=== PATIENT | male | born 1980 | race Caucasian/White ===

== ENCOUNTER 2017-03-22 19:52 | Emergency (ER) | payer OTHER ==
[~2017-03-22] VITALS: Ht 172.7 cm; Wt 70.2 kg
[~2017-03-22 19:52] MED LIST: ABLUNK; ACET-1256 PO; ALBU1AER9; LEVAAER2; OXYC-57 PO
[2017-03-22 20:00] VITALS: TEMP 36.7; Ht 172.7 cm; Wt 70.2 kg
[2017-03-22] MEDS ORDERED: VNTHFA/IN INH (20:36)
[2017-03-22] MEDS ORDERED: IBUP-1451 PO (20:36)
[2017-03-22] MEDS ORDERED: METH500T PO (20:36)
[2017-03-22 20:39] LABS: BASO % 0.6 %; BASO ABS # 0.04 K/uL (0-0.2); COMPLETE YES; EOS % 3.9 %; IG% 0.2 %; LYMPH % 43.7 %; LYMPH ABS # 2.72 K/uL (1.2-3.4); MEAN CELL VOLUME 87.7 fL (80-100); MEAN CORPUSCULAR HEMOGLOBIN 31.2 pg (25-34); MEAN CORPUSCULAR HGB CONC 35.5 g/dl (32-36); MEAN PLATELET VOLUME 9.9 fL (7.4-10.4); NEUT % 43.6 %; PLATELET COUNT 254 K/uL (130-400); RED BLOOD COUNT 5.36 M/uL (4.7-6.1); WHITE BLOOD COUNT 6.23 K/uL (4.8-10.8)
[2017-03-22 21:01] LABS: BUN/CREATININE RATIO 3.8 (10-20); CREATININE 1.2 mg/dl (0.60-1.40); POTASSIUM 3.4 mmol/L (3.5-5.1)
--- NOTE | 2017-03-22 21:06 | DIAGNOSTIC IMAGING REPORT ---
CT OF THE CERVICAL SPINE CLINICAL HISTORY: left arm tingling COMPARISON STUDY: No previous studies for comparison. CT DOSE: 282.45 mGy.cm TECHNIQUE: CT scan of the cervical spine was performed from the skull base to the thoracic inlet. Images are reviewed in the axial, sagittal, and coronal planes. IV contrast was not administered for this examination. A dose lowering technique was utilized adhering to the principles of ALARA. FINDINGS: The visualized portions of the lung apices reveal no evidence of pneumothorax. The prevertebral soft tissues are normal. No fractures or subluxations are visualized. No disc herniations are visualized on CT scanning. If there is clinical concern over the presence of cord or nerve root pathology, an MRI would be considered the test of choice. IMPRESSION: Unremarkable CT scan of the cervical spine Electronically signed by: Neto Corrales M.D. 03/22/2017 9:05 PM Dictated Date/Time: 03/22/2017 9:03 PM
--- NOTE | 2017-03-22 22:18 | DIAGNOSTIC IMAGING REPORT ---
CHEST ONE VIEW PORTABLE CLINICAL HISTORY: Atypical chest pain COMPARISON STUDY: 02/10/2016 FINDINGS: The cardiac and mediastinal contours are normal. There is no evidence of focal pulmonary consolidation. There is no evidence of failure. No pleural effusions are visualized.[ IMPRESSION: No active disease in the chest. Electronically signed by: Neto Corrales M.D. 03/22/2017 10:17 PM Dictated Date/Time: 03/22/2017 10:16 PM
--- NOTE | 2017-03-22 22:20 | DIAGNOSTIC IMAGING REPORT ---
LEFT SHOULDER 4 VIEWS ROUTINE CLINICAL HISTORY: Left shoulder pain COMPARISON: None. DISCUSSION: No fractures or dislocations are visualized. There are no visible periarticular calcifications. IMPRESSION: No fractures or dislocations identified. Electronically signed by: Neto Corrales M.D. 03/22/2017 10:19 PM Dictated Date/Time: 03/22/2017 10:18 PM
[2017-03-22 22:51] VITALS: BP 116/88; PULSE 64; O2SAT 98
--- NOTE | 2017-03-23 01:55 | EMERGENCY ROOM VISIT NOTE ---
History Report prepared by Donald: Desiree Younger Under the Supervision of: Dr. Lambert Arauz M.D. First contact with patient: 20:04 Chief Complaint: RIB PAIN Stated Complaint: TINGLING IN L ARM FOR 3 WEEKS, SHOULDER GRINDING, History of Present Illness The patient is a 36 year old male who presents to the Emergency Room with complaints of an episode of left rib pain starting 3 weeks ago. The patient states that his left arm has been numb and tingling. 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 He states he has been getting a sharp pain that starts under his armpit and shoots back under his shoulder blade. He states that it is worse with movement. The patient states that he sometimes has numbness in his arms from nerve damage in his neck. He notes that he had an accident where he fell on his right side on the side of a truck bed 6 weeks ago. He reports that he felt his rib pop and he had pain, but he feels that these symptoms have resolved. The patient denies chest pain, tingling in his legs, headache, shortness of breath, and pain while breathing. Source of History: patient Onset: 3 weeks ago Position: other (left rib) Quality: tingling, numbness, other (shooting) Timing: other (episode) Modifying Factors (Worsening): movement Associated Symptoms: No headache, No chest pain, No SOB Note: The patient denies tingling in his legs and pain when breathing. Review of Systems See HPI for pertinent positives & negatives. A total of 10 systems reviewed and were otherwise negative. Past Medical & Surgical Medical Problems: (1) Asthma Old medical records were reviewed. Nurse's notes were reviewed and I agree with. Family History No significant family history Social History Smoking Status: Current Every Day Smoker Marital Status: single Occupation Status: employed Current/Historical Medications Scheduled PRN Albuterol Hfa (Ventolin Hfa), 2 PUFFS INH Q4 PRN for SOB/Wheezing Ibuprofen Tab (Motrin), 800 MG PO DAILY PRN for Pain Methocarbamol (Robaxin), 500 MG PO 3XWK PRN for Pain Allergies Coded Allergies: Unclassified Drugs (Verified Adverse Reaction, Unknown, LOCAL ANESTHETICS - DO NOT WORK, 04/22/15) Physical Exam Vital Signs Date Time Temp Pulse Resp B/P (MAP) Pulse Ox O2 Delivery O2 Flow Rate FiO2 03/22/17 22:51 64 18 116/88 98 03/22/17 21:13 62 18 113/74 98 Room Air 03/22/17 20:00 36.7 80 16 134/88 99 Room Air Physical Exam General: Well developed well nourished in no acute distress, breathing comfortably on room air. Normal speech. Non-ill appearing young male. HEENT: Normal cephalic atraumatic. Pupils are equal round and reactive to light. Sclerae anicteric. Extraocular movements are intact. Oropharynx is pink with moist mucous membranes. No swelling of the mouth lips or tongue. Neck: Supple with a midline trachea. No meningeal signs or stiffness, no JVD or bruits. No Stridor. Chest: Clear to auscultation bilaterally. No wheezes or rhonchi. No increased work of breathing. No tenderness to palpation of chest. Heart: regular rate and rhythm. Abdomen: Soft nontender, nondistended without rebound guarding or rigidity. Extremities: No cyanosis clubbing or edema. No calf tenderness or assymetry, Left upper extremity has normal sensation and pulses. Spine/Back. Non tender to palpation. No CVA tenderness Skin: Good turgor without rashes. Neurologic exam: Cranial nerves two through 12 are intact. Motor and sensation are intact and symmetrical throughout. Medical Decision & Procedures ER Provider Diagnostic Interpretation: Radiology results as stated below per my review and radiologist interpretation: LEFT SHOULDER 4 VIEWS ROUTINE CLINICAL HISTORY: Left shoulder pain COMPARISON: None. DISCUSSION: No fractures or dislocations are visualized. There are no visible periarticular calcifications. IMPRESSION: No fractures or dislocations identified. Electronically signed by: Neto Corrales M.D. 03/22/2017 10:19 PM Dictated Date/Time: 03/22/2017 10:18 PM CHEST ONE VIEW PORTABLE CLINICAL HISTORY: Atypical chest pain COMPARISON STUDY: 02/10/2016 FINDINGS: The cardiac and mediastinal contours are normal. There is no evidence of focal pulmonary consolidation. There is no evidence of failure. No pleural effusions are visualized.[ IMPRESSION: No active disease in the chest. Electronically signed by: Neto Corrales M.D. 03/22/2017 10:17 PM Dictated Date/Time: 03/22/2017 10:[address] OF THE CERVICAL SPINE CLINICAL HISTORY: left arm tingling COMPARISON STUDY: No previous studies for comparison. CT DOSE: 282.45 mGy.cm TECHNIQUE: CT scan of the cervical spine was performed from the skull base to the thoracic inlet. Images are reviewed in the axial, sagittal, and coronal planes. IV contrast was not administered for this examination. A dose lowering technique was utilized adhering to the principles of ALARA. FINDINGS: The visualized portions of the lung apices reveal no evidence of pneumothorax. The prevertebral soft tissues are normal. No fractures or subluxations are visualized. No disc herniations are visualized on CT scanning. If there is clinical concern over the presence of cord or nerve root pathology, an MRI would be considered the test of choice. IMPRESSION: Unremarkable CT scan of the cervical spine Electronically signed by: Neto Corrales M.D. 03/22/2017 9:05 PM Dictated Date/Time: 03/22/2017 9:03 PM Laboratory Results 03/22/17 20:25 Red Blood Count 5.36, Mean Corpuscular Volume 87.7, Mean Corpuscular Hemoglobin 31.2, Mean Corpuscular Hemoglobin Concent 35.5, Mean Platelet Volume 9.9, Neutrophils (%) (Auto) 43.6, Lymphocytes (%) (Auto) 43.7, Monocytes (%) (Auto) 8.0, Eosinophils (%) (Auto) 3.9, Basophils (%) (Auto) 0.6, Neutrophils # (Auto) 2.72, Lymphocytes # (Auto) 2.72, Monocytes # (Auto) 0.50, Eosinophils # (Auto) 0.24, Basophils # (Auto) 0.04 03/22/17 20:25 Test 03/22/17 20:25 03/22/17 20:33 White Blood Count 6.23 K/uL (4.8-10.8) Red Blood Count 5.36 M/uL (4.7-6.1) Hemoglobin 16.7 g/dL (14.0-18.0) Hematocrit 47.0 % (42-52) Mean Corpuscular Volume 87.7 fL (80-100) Mean Corpuscular Hemoglobin 31.2 pg (25-34) Mean Corpuscular Hemoglobin Concent 35.5 g/dl (32-36) Platelet Count 254 K/uL (130-400) Mean Platelet Volume 9.9 fL (7.4-10.4) Neutrophils (%) (Auto) 43.6 % Lymphocytes (%) (Auto) 43.7 % Monocytes (%) (Auto) 8.0 % Eosinophils (%) (Auto) 3.9 % Basophils (%) (Auto) 0.6 % Neutrophils # (Auto) 2.72 K/uL (1.4-6.5) Lymphocytes # (Auto) 2.72 K/uL (1.2-3.4) Monocytes # (Auto) 0.50 K/uL (0.11-0.59) Eosinophils # (Auto) 0.24 K/uL (0-0.5) Basophils # (Auto) 0.04 K/uL (0-0.2) RDW Standard Deviation 39.4 fL (36.4-46.3) RDW Coefficient of Variation 12.4 % (11.5-14.5) Immature Granulocyte % (Auto) 0.2 % Immature Granulocyte # (Auto) 0.01 K/uL (0.00-0.02) Anion Gap 5.0 mmol/L (3-11) Est Creatinine Clear Calc Drug Dose 83.9 ml/min Estimated GFR () 90.9 Estimated GFR (Non- 78.4 BUN/Creatinine Ratio 3.8 (10-20) Calcium Level 9.0 mg/dl (8.5-10.1) Total Bilirubin 0.5 mg/dl (0.2-1) Direct Bilirubin 0.1 mg/dl (0-0.2) Aspartate Amino Transf (AST/SGOT) 22 U/L (15-37) Alanine Aminotransferase (ALT/SGPT) 19 U/L (12-78) Alkaline Phosphatase 74 U/L (45-117) Total Protein 6.6 gm/dl (6.4-8.2) Albumin 3.9 gm/dl (3.4-5.0) Lipase 947 U/L (73-393) Bedside Troponin I < 0.030 ng/ml (0-0.045) Laboratory studies as stated above per my review. ECG Indication: back/shoulder pain Rate (beats per minute): 77 Rhythm: normal sinus Findings: no acute ischemic change, other (short GA) Comparison ECG Date: no prior available ED Course 2004: Past medical records reviewed. The patient was evaluated in room B11B, and a complete history and physical examination were performed. 2138: I reevaluated the patient and he is waiting to go to x-ray. 2226: Upon reevaluation, the patient is resting comfortably. I discussed the results and treatment plan with him. He verbalized agreement of the treatment plan. The patient was discharged home. Medical Decision Differential diagnoses include cardiac disease, arrhythmia, trauma, cervical disease, electrolyte abnormality, metabolic abnormality. This patient comes in as described above. He's had some tingling in his arms bilaterally mostly on the left this has been going on for several weeks. He also injured his right ribs about a month or so ago this seemed to do better now. He has no crepitus. On exam, he is no neurologic deficits. He has no chest pain or shortness breath. EKG does not suggest acute coronary syndrome or arrhythmia. His GA interval is short but he has no symptoms to suggest he's having preexcitation. He's had no palpitations. Chest x-ray does not show any acute findings. CAT scan his neck does not show any acute findings. X-rays of the shoulder was unremarkable. He has had an no acute electrode or metabolic abnormalities. He has nothing to suggest cardiac disease. I think this is musculoskeletal. He should continue to use anti-inflammatories. Return if : increasing pain, numbness or weakness, worsening of symptoms, any new problems or concerns. He should follow-up with his doctor this week for recheck. He is happy the plan and discharged to home. Impression Primary Impression: Left arm pain Additional Impression: Contusion of rib on right side Scribe Attestation The scribe's documentation has been prepared under my direction and personally reviewed by me in its entirety. I confirm that the note above accurately reflects all work, treatment, procedures, and medical decision making performed by me. Departure Information Dispostion Home / Self-Care Referrals RV. Ren MD (PCP) Forms HOME CARE DOCUMENTATION FORM, IMPORTANT VISIT INFORMATION, WORK / SCHOOL INSTRUCTIONS Patient Instructions My [facility] Additional Instructions Rest. Drink plenty of fluids. Use ibuprofen 400 mg every 6 hours, take with food Return if: Increasing pain, worsening of symptoms, shortness of breath, fever chills, any new problems or concerns. Follow-up with your doctor this week for recheck. Problem Qualifiers
== END 2017-03-22 22:52 | disposition home or self-care (01) ==
LOC: C.EDB 19:53
DX: M79.602 Pain in left arm (principal); S20.211A Contusion of right front wall of thorax, initial encounter; W19.XXXA Unspecified fall, initial encounter; Y92.89 Other specified places as the place of occurrence of the external cause; J45.909 Unspecified asthma, uncomplicated; F17.210 Nicotine dependence, cigarettes, uncomplicated

== ENCOUNTER → 2017-05-04 | Outpatient (CLI) | payer OTHER ==
[~2017-05-04] MED LIST changes: -ABLUNK; -ACET-1256 PO; -ALBU1AER9; +IBUP-1451 PO; -LEVAAER2; +METH500T PO; -OXYC-57 PO; +VNTHFA/IN INH
--- NOTE | 2017-05-04 19:43 | DIAGNOSTIC IMAGING REPORT ---
ORBIT RADIOGRAPHS 3 VIEWS HISTORY: pre-MRI screening. COMPARISON: None. FINDINGS: There are no radiopaque foreign bodies identified within the orbits. IMPRESSION: No radiopaque foreign bodies identified within the orbits. Electronically signed by: Darren Gonzalez M.D. 05/04/2017 7:42 PM Dictated Date/Time: 05/04/2017 7:41 PM
--- NOTE | 2017-05-04 21:44 | DIAGNOSTIC IMAGING REPORT ---
MRI OF THE CERVICAL SPINE WITHOUT CONTRAST CLINICAL HISTORY: Left arm numbness and weakness. Cervical radiculopathy. COMPARISON: Cervical spine CT March 22, 2017. TECHNIQUE: Utilizing a 1.5 Veena magnet and dedicated coil, multiplanar, multiecho imaging of the cervical spine was performed without IV contrast. FINDINGS: Alignment of the cervical spine is anatomic. Vertebral body heights are maintained. There is no marrow replacement or marrow edema. Cervical cord signal and caliber are normal. No intracanalicular mass or fluid collection is present. C2-C3: The central canal and neural foramen are patent. C3-C4: The central canal and neural foramen are patent. C4-C5: The central canal and neural foramen are patent. C5-C6: The central canal and neural foramen are patent. C6-C7: Note is made of minimal disc bulge and left-sided uncovertebral hypertrophy with a suspected left foraminal disc protrusion that results in severe narrowing of the left neural foramen. The central canal and right neural foramen are patent. C7-T1: Central canal and neural foramen are patent. IMPRESSION: 1. Left foraminal disc protrusion with uncovertebral hypertrophy at C6-C7 that results in severe narrowing of the left neural foramen. This could be correlated with left C7 radiculopathy. 2. Otherwise, unremarkable MRI of the cervical spine. Electronically signed by: Darren Gonzalez M.D. 05/04/2017 9:43 PM Dictated Date/Time: 05/04/2017 9:35 PM
== END | disposition home or self-care (01) ==
LOC: C.RAD 19:20
PROVIDERS: ATTEND Internal Medicine
DX: M50.123 Cervical disc disorder at C6-C7 level with radiculopathy (principal); R20.0 Anesthesia of skin; R20.2 Paresthesia of skin; M19.90 Unspecified osteoarthritis, unspecified site; R29.898 Other symptoms and signs involving the musculoskeletal system; G56.02 Carpal tunnel syndrome, left upper limb; M25.512 Pain in left shoulder